=== PATIENT | female | born 1995 | race Caucasian/White ===

== ENCOUNTER → 2019-07-04 08:08 | Outpatient (CLI) | payer OTHER, SELFPAY ==
--- NOTE | ~2019-07-04 | US_ITS ---
US breast BI complete 07/04/2019 08:47 Indication: Palpable right breast mass. Left breast pain. Procedure: High-resolution bilateral breast ultrasound Comparison: No prior studies for comparison. Findings: Right breast ultrasound: At 8:00 in the area of palpable concern, 4.5 cm from the nipple there is an oval circumscribed hypoec hoic mass measuring 1.8 x 1.9 x 1.0 cm. There is enhanced through transmission, parallel orientation and internal vascularity. At 9:00, 7 cm from the nipple, there is an oval circumscribed hypoechoic ma ss with parallel orientation, enhanced through transmission measuring 2.5 x 1.2 x 2.2 cm. There is in ternal vascularity. There is an adjacent hypoechoic mass measuring 8 mm with similar sonographic belgica acteristics. At 12:00, 6 cm from the nipple, there is an oval hypoechoic mass measuring 1.2 x 0.7 x 1 .2 cm with parallel orientation, circumscribed margins, posterior acoustic enhancement and no interna l vascularity. Left breast ultrasound: Normal heterogeneous echotexture without focal mass. Impression: 1: Multiple right breast masses, most likely benign fibroadenomas. BI-RADS CATEGORY 3-PROBABLY BENIGN FINDING RECOMMENDATION: Six-month follow-up right breast ultrasound recommended. Reviewed, dictated and finalized at location A. Impression: 1: Multiple right breast masses, most likely benign fibroadenomas. BI-RADS CATEGORY 3-PROBABLY BENIGN FINDING RECOMMENDATION: Six-month follow-up right breast ultrasound recommended.
== END ==
PROVIDERS: Visit Provider Nurse Practitioner Obstetrics & Gynecology
DX: N63.10 Unspecified lump in the right breast, unspecified quadrant (principal); N64.4 Mastodynia
CPT/HCPCS: 76641